=== PATIENT | female | born 1995 | race Caucasian/White ===

== ENCOUNTER 2021-04-06 07:25 | Day surgery (SDC) | payer MEDICAID, SELFPAY ==
[~2021-04-06] VITALS: Ht 167.6 cm; Wt 177.4 kg
[2021-04-06] MEDS ORDERED: SIMETHICONE 40 MG/0.6 ML ML ONE (07:39)
[2021-04-06 09:43] LABS: HCG,QUAL RESULT NEGATIVE (NEGATIVE)
[2021-04-06] MEDS: MIDAZOLAM HCL 5 MG/5 ML VIAL ONE ×4 (10:04→10:12)
[2021-04-06] MEDS: MEPERIDINE 100 MG INJ. 100 MG/ML VIAL ONE ×3 (10:04→10:12)
[2021-04-06] MEDS ORDERED: DIPHENHYDRAMINE INJ 50 MG/ML VIAL ONE (10:20)
[2021-04-06] MEDS ORDERED: MIDAZOLAM HCL 5 MG/5 ML VIAL ONE (10:21)
[2021-04-06 13:52] VITALS: BP_SYST 157
== END 2021-04-06 11:53 | disposition home or self-care (01) ==
LOC: SDS 07:25 → SMU 07:28 → SDS 11:53
PROVIDERS: ATTEND Internal Medicine Gastroenterology
DX: K21.9 Gastro-esophageal reflux disease without esophagitis (principal); K29.50 Unspecified chronic gastritis without bleeding; E66.01 Morbid (severe) obesity due to excess calories; K44.9 Diaphragmatic hernia without obstruction or gangrene; I10 Essential (primary) hypertension; Z98.84 Bariatric surgery status; Z20.822 Contact with and (suspected) exposure to COVID-19; Z68.44 Body mass index [BMI] 60.0-69.9, adult
CPT/HCPCS: 36415; 43239; 84703; 87081; 88305; 88312; 88313; G0378; J1200; J2175; J2250; U0003